=== PATIENT | female | born 1985 | race Hispanic/Latino ===

== ENCOUNTER 2023-11-21 17:09 | Emergency (ER) | payer BC ==
[~2023-11-21] VITALS: Ht 157.5 cm; Wt 69.6 kg
[2023-11-21 18:08] LABS: BILIRUBIN, URINE NEGATIVE (negative); BLOOD/HGB, URINE LARGE (Negative); KETONE, URINE NEGATIVE (Negative); LEUK ESTERASE, URINE NEGATIVE (negative); NITRITE, URINE NEGATIVE (negative)
[2023-11-21 18:08] LABS: BASOPHILS 0.9 % (0-2); EOSINOPHILS 0.6 % (0-6); HEMATOCRIT 43.8 % (35.0-50.0); HEMOGLOBIN 14.6 g/dL (12.0-18.0); LYMPHOCYTES 22.5 % (24-44); MCH 33.1 (27-36); MCHC 33.4 g/dl (30-36); MCV 99.2 fl (81-99); MONOCYTES 5.1 % (0-12); NEUTROPHILS 70.9 % (39-80); PLATELET COUNT 233 K/uL (140-440); RBC 4.42 M/ul (4.3-5.7); RDW 13.4 (10.5-15.0)
[2023-11-21 18:16] LABS: BACTERIA, URINE NONE SEEN /hpf (negative); CASTS, URINE NONE SEEN \\lpf; COLLECTION TYPE, URINE CLEAN CATCH; CRYSTALS, URINE NONE SEEN (0-1+); EPITHELIAL CELLS, URINE SQUAMOUS 1+ /lpf (0-1+); RED BLOOD CELLS, URINE 41-50 /hpf (0-5); REFLEX CULTURE, URINE No (No)
[2023-11-21 19:03] VITALS: BP 138/96
== END 2023-11-21 19:04 | disposition home or self-care (01) ==
LOC: ED 17:09
PROVIDERS: Emergency Medicine
DX: N93.8 Other specified abnormal uterine and vaginal bleeding (principal)
CPT/HCPCS: 36415; 81001; 84703; 85025; 99284

== ENCOUNTER 2025-08-16 13:46 | Emergency (ER) | payer BC ==
[~2025-08-16] VITALS: Ht 157.5 cm; Wt 72.9 kg
[2025-08-16] MEDS ORDERED: SODIUM CHLORIDE 0.9% 500 ML IV PRN (14:30)
[2025-08-16 14:39] LABS: BASOPHILS 0.4 % (0.1-1.2); EOSINOPHILS 2.6 % (0.7-5.8); LYMPHOCYTES 25.5 % (19.3-51.7); MCH 33.9 PG (25.6-32.2); MCHC 34.4 g/dL (32.2-35.5); MCV 98.7 fL (79.4-94.8); MONOCYTES 6.4 % (4.7-12.5); NEUTROPHILS 64.7 % (34.0-71.1); RBC 3.86 M/uL (3.93-5.22)
[2025-08-16 14:53] LABS: GLOMERULAR FILTRATION RATE,EST 77.0 mL/min (>60); UREA NITROGEN 21.0 mg/dL (7-18)
[2025-08-16 14:57] LABS: BLOOD/HGB, URINE LARGE (Negative); KETONE, URINE NEGATIVE (Negative); LEUK ESTERASE, URINE TRACE (negative); NITRITE, URINE NEGATIVE (negative)
[2025-08-16 15:09] LABS: EPITHELIAL CELLS, URINE SQUAMOUS 3+ /lpf (0-1+)
[2025-08-16 15:10] LABS: CRYSTALS, URINE NONE SEEN (0-1+)
[2025-08-16 15:11] LABS: BACTERIA, URINE 1+ /hpf (negative); CASTS, URINE NONE SEEN \\lpf; REFLEX CULTURE, URINE No (No)
[2025-08-16 15:15] LABS: ABO A; RH POSITIVE
[2025-08-16] MEDS ORDERED: TRANEXAMIC ACI650 MG PO (15:37)
[2025-08-16] MEDS ORDERED: TRANEXAMIC ACID 650 MG TABLET PO ONE (15:45)
[2025-08-16 16:02] VITALS: BP 124/100
== END 2025-08-16 16:02 | disposition home or self-care (01) ==
LOC: ED 13:46
PROVIDERS: Emergency Medicine
DX: N93.9 Abnormal uterine and vaginal bleeding, unspecified (principal)
CPT/HCPCS: 36415; 80048; 81001; 84703; 85025; 86900; 86901; 99284